=== PATIENT | male | born 1965 | race American Indian/Alaskan Native ===

== ENCOUNTER 2021-06-20 22:49 | Emergency (ER) | payer SELFPAY ==
[2021-06-20] MEDS ORDERED: SODIUM CHLORIDE 0.9% 1000 ML 1,000 ML IV ONE (22:56)
[2021-06-20] MEDS ORDERED: IPRATROPIUM/ALBUTEROL SULFATE 3 ML AMPUL.NEB IH ONE (22:57)
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
[2021-06-20] MEDS ORDERED: TETANUS,DIPH,PERTUSS(ACELL) VACCINE 0.5 ML SYRINGE IM ONE (23:12)
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
[2021-06-20 23:31] LABS: Basophils # (Auto) 0.1 K/mm3 (0.0-0.1); Basophils % (Auto) 0.9 % (0.0-1.8); Eosinophils # (Auto) 0.2 K/mm3 (0.0-0.4); Eosinophils % (Auto) 1.7 % (0.0-4.3); Hemoglobin 16.2 gm/dl (11.8-15.2); Lymphocytes # (Auto) 3.2 K/mm3 (1.2-5.4); Lymphocytes % (Auto) 32.4 % (13.4-35.0); Mean Corpuscular HGB Conc 32 % (32-34); Mean Corpuscular Volume 99 fl (84-94); Monocytes # (Auto) 0.8 K/mm3 (0.0-0.8); Monocytes % (Auto) 8.1 % (0.0-7.3); Platelet Count 282 K/mm3 (140-440); Red Blood Count 5.06 M/mm3 (3.65-5.03); Red Cell Distribution Width 13.1 % (13.2-15.2)
[2021-06-20 23:42] LABS: Partial Thromboplastin Time 24.1 Sec. (24.2-36.6)
[2021-06-20 23:46] LABS: INR 0.88 (0.87-1.13)
[2021-06-20] MEDS ORDERED: ZIPRASIDONE MESYLATE 20 MG VIAL IM ONE (23:53)
[2021-06-20] MEDS ORDERED: WATER FOR INJ Sterile (PF) 10 ML ONE (23:55)
[2021-06-21 00:09] LABS: BUN/Creatinine Ratio 17; Blood Urea Nitrogen 17 mg/dL (9-20); Calcium 8.7 mg/dL (8.4-10.2); Hemolysis Index 26
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
[2021-06-21] MEDS ORDERED: LIDOCAINE 1%/EPINEPHRINE 1:100,000 VIAL (20 ML) INFILTRATI NR (02:00)
[2021-06-21 04:39] VITALS: BP 116/80
== END 2021-06-21 07:00 | disposition home or self-care (01) ==
LOC: ED 22:49
DX: S11.91XA Laceration without foreign body of unspecified part of neck, initial encounter (principal); S21.119A Laceration without foreign body of unspecified front wall of thorax without penetration into thoracic cavity, initial encounter; F10.129 Alcohol abuse with intoxication, unspecified; W26.0XXA Contact with knife, initial encounter; Y93.89 Activity, other specified; Y92.89 Other specified places as the place of occurrence of the external cause; Y99.8 Other external cause status; Z79.899 Other long term (current) drug therapy
CPT/HCPCS: 12002; 36415; 70498; 71045; 80048; 85025; 85610; 85730; 90471; 90715; 94640; 96360; 96372; 99291; J3486; J3490; J7030; Q9967; 94644; 99284; Q0162